=== PATIENT | female | born 1960 | race Caucasian/White ===

== ENCOUNTER 2020-05-07 17:14 | Inpatient (IN) ==
[2020-05-07] MEDS ORDERED: 0.9 % Sodium Chloride 500 ML IVC ONE (17:54)
[2020-05-07 18:28] LABS: INR 1.1; Prothrombin Time 12.2 Seconds (9.4-12.1)
[2020-05-07 18:31] LABS: Activated Partial Thrombo Time 28.8 Seconds (26.0-36.0); Basophils % 0.6 %; Hematocrit 45.5 % (35.3-44.9); Hemoglobin 14.7 g/dL (11.5-15.4); Immature Granulocytes % 0.9 % (0-4); Lymphocytes # 0.6 K/mcL (0.6-4.6); Lymphocytes % 17.6 %; Mean Corpuscular HGB Conc 32.3 g/dL (31.6-35.5); Mean Corpuscular Hemoglobin 27.4 pg (28.0-33.3); Mean Corpuscular Volume 84.9 fL (83.0-100.0); Mean Platelet Volume 10.1 fL (9.4-12.4); Monocytes # 0.1 K/mcL (0.0-1.3); Monocytes % 3.2 %; Platelet Count 211 K/mcL (140-400); Red Blood Count 5.36 M/mcL (3.82-4.97); Red Cell Distribution Width 12.8 % (11.5-14.5); Segmented Neutrophils % 77.7 %; White Blood Count 3.4 K/mcL (4.3-11.1)
[2020-05-07 18:36] LABS: BUN/Creatinine Ratio 16 (6-26); Blood Urea Nitrogen 13 mg/dL (6-20); Calcium 9.5 mg/dL (8.6-10.3); Carbon Dioxide 25 mEq/L (23-29); Chloride 102 mEq/L (98-107); Glucose 149 mg/dL (70-105); Neutrophils # 2.6 K/mcL (1.6-8.9); Osmolality,Calculated 289 (280-300); Potassium 3.6 mEq/L (3.5-5.1); Sodium 138 mEq/L (136-145); Troponin I < 0.03 ng/mL (< 0.04); eGFR For African Americans > 60 (> 60); eGFR For Non-African Americans > 60 (> 60)
[2020-05-07] MEDS ORDERED: Azithromycin 250 MG TABLET PO ONE (18:50)
[2020-05-07] MEDS ORDERED: Dexamethasone 4 MG/ML VIAL IVP ONE (18:51)
[2020-05-07] MEDS ORDERED: 0.9 % Sodium Chloride 1,000 ML IVC ONE (19:12)
[2020-05-07 19:21] LABS: Platelet Estimate Normal (Normal); Reactive Lymphocytes Present (Not Present)
[2020-05-07] MEDS ORDERED: Naloxone 0.4 MG/ML INJ IVP PRN (19:46)
[2020-05-07] MEDS ORDERED: Ondansetron 4 MG/2 ML VIAL IVP PRN (19:46)
[2020-05-07] MEDS ORDERED: *HR* OxyCODONE Immed Rel 5 MG TABLET PO PRN (19:46)
[2020-05-07] MEDS ORDERED: cefTRIAXone 1,000 MG in Water for inj. (sterile) 10 ML IVP SCH (20:00)
[2020-05-07 21:33] LABS: C-Reactive Protein 63 mg/L (Less than 10); Lactate Dehydrogenase 403 Units/L (140-271)
[2020-05-07 21:52] LABS: Ferritin 316 ng/mL (10-120)
[2020-05-07] MEDS ORDERED: Ipratropium/Albuterol Neb 3 ML IH SCH (22:00)
[2020-05-08 00:43] LABS: Lymphocytes % 26.6 %; Red Cell Distribution Width 12.6 % (11.5-14.5)
[2020-05-08 00:45] LABS: Basophils % 0.5 %; Eosinophils % 0.5 %; Hematocrit 43.2 % (35.3-44.9); Hemoglobin 13.3 g/dL (11.5-15.4); Immature Granulocytes % 1.1 % (0-4); Lymphocytes # 0.5 K/mcL (0.6-4.6); Mean Corpuscular HGB Conc 30.8 g/dL (31.6-35.5); Mean Corpuscular Hemoglobin 26.9 pg (28.0-33.3); Mean Corpuscular Volume 87.3 fL (83.0-100.0); Mean Platelet Volume 10.4 fL (9.4-12.4); Monocytes % 1.6 %; Neutrophils # 1.3 K/mcL (1.6-8.9); Platelet Count 176 K/mcL (140-400); Red Blood Count 4.95 M/mcL (3.82-4.97); Segmented Neutrophils % 69.7 %; White Blood Count 1.8 K/mcL (4.3-11.1)
[2020-05-08 01:25] LABS: Platelet Estimate Normal (Normal); Reactive Lymphocytes Present (Not Present)
[2020-05-08] MEDS ORDERED: Benzonatate 100 MG CAPSULE PO PRN (01:56)
[2020-05-08] MEDS: Acetaminophen 325 MG TABLET PO PRN (05:27)
[2020-05-08] MEDS ORDERED: *HR* Heparin 5,000 UNIT/ML VIAL SQ SCH (06:00)
[2020-05-08] MEDS ORDERED: Furosemide 20 MG/2 ML VIAL IVP ONE (07:18)
[2020-05-08] MEDS: Dexamethasone 4 MG/ML VIAL IVP SCH (07:33)
[2020-05-08] MEDS ORDERED: Azithromycin 500 MG in 0.9 % Sodium Chloride 250 ML IVPB SCH (19:00)
[2020-05-08] MEDS: *HR* Enoxaparin 40 MG/0.4 ML SYRINGE SQ SCH (20:18)
[2020-05-09] MEDS: Acetaminophen 325 MG TABLET PO PRN (00:25)
[2020-05-09 01:06] LABS: Hematocrit 42.4 % (35.3-44.9); Hemoglobin 13.5 g/dL (11.5-15.4); Mean Corpuscular HGB Conc 31.8 g/dL (31.6-35.5); Mean Corpuscular Hemoglobin 27.2 pg (28.0-33.3); Mean Corpuscular Volume 85.3 fL (83.0-100.0); Mean Platelet Volume 10.4 fL (9.4-12.4); Platelet Count 211 K/mcL (140-400); Red Blood Count 4.97 M/mcL (3.82-4.97); Red Cell Distribution Width 12.7 % (11.5-14.5)
[2020-05-09 01:07] LABS: White Blood Count 7.8 K/mcL (4.3-11.1)
[2020-05-09 01:27] LABS: BUN/Creatinine Ratio 22 (6-26); Blood Urea Nitrogen 18 mg/dL (6-20); Calcium 8.8 mg/dL (8.6-10.3); Carbon Dioxide 23 mEq/L (23-29); Chloride 106 mEq/L (98-107); Glucose 204 mg/dL (70-105); Osmolality,Calculated 298 (280-300); Potassium 3.6 mEq/L (3.5-5.1); Sodium 140 mEq/L (136-145); eGFR For African Americans > 60 (> 60); eGFR For Non-African Americans > 60 (> 60)
[2020-05-09] MEDS: *HR* Enoxaparin 40 MG/0.4 ML SYRINGE SQ SCH (08:09)
[2020-05-09] MEDS: Dexamethasone 4 MG/ML VIAL IVP SCH (08:09)
[2020-05-09 13:01] VITALS: BP 122/82
== END 2020-05-09 15:38 | disposition home or self-care (01) | DRG 177 ==
LOC: 2NENU 17:14 → EMEROOARM 17:14 → SUATTDRO 19:53 → 2NENU 20:31 → SUATTDRO 05-08 16:33
PROVIDERS: ADMIT Internal Medicine; ATTEND Internal Medicine

== ENCOUNTER 2021-01-21 14:16 | Inpatient (IN) ==
[2021-01-21] MEDS ORDERED: Naloxone 0.4 MG/ML INJ IVP PRN (15:29)
[2021-01-21] MEDS ORDERED: Acetaminophen 325 MG TABLET PO PRN (16:12)
[2021-01-21 17:52] LABS: Basophils # 0.1 K/mcL (0.0-0.2); Basophils % 0.8 %; Eosinophils # 0.2 K/mcL (0.0-0.6); Eosinophils % 2.9 %; Hematocrit 40.9 % (35.3-44.9); Hemoglobin 13.4 g/dL (11.5-15.4); Immature Granulocytes % 0.6 % (0-4); Lymphocytes # 2.2 K/mcL (0.6-4.6); Lymphocytes % 32.7 %; Mean Corpuscular HGB Conc 32.8 g/dL (31.6-35.5); Mean Corpuscular Hemoglobin 27.1 pg (28.0-33.3); Mean Corpuscular Volume 82.8 fL (83.0-100.0); Mean Platelet Volume 10.3 fL (9.4-12.4); Monocytes # 0.4 K/mcL (0.0-1.3); Monocytes % 5.9 %; Neutrophils # 3.8 K/mcL (1.6-8.9); Platelet Count 290 K/mcL (140-400); Red Blood Count 4.94 M/mcL (3.82-4.97); Red Cell Distribution Width 12.8 % (11.5-14.5); Segmented Neutrophils % 57.1 %; White Blood Count 6.6 K/mcL (4.3-11.1)
[2021-01-21 18:07] LABS: BUN/Creatinine Ratio 18 (6-26); Blood Urea Nitrogen 14 mg/dL (6-20); Calcium 9.6 mg/dL (8.6-10.3); Carbon Dioxide 28 mEq/L (23-29); Chloride 103 mEq/L (98-107); Glucose 119 mg/dL (70-105); Osmolality,Calculated 290 (280-300); Potassium 3.6 mEq/L (3.5-5.1); Sodium 139 mEq/L (136-145); eGFR For African Americans > 60 (> 60); eGFR For Non-African Americans > 60 (> 60)
[2021-01-21] MEDS ORDERED: Vancomycin (wt based) 1,000 MG VIAL IVPB SCH (19:00)
[2021-01-21 19:34] LABS: C-Reactive Protein 24 mg/L (Less than 10)
[2021-01-21] MEDS: Vancomycin 1,500 MG/265 ML IV.SOLN IVPB SCH (21:11)
[2021-01-22] MEDS: CeFAZolin 2,000 MG/120 ML BAG IVPB SCH ×3 (00:40→15:46)
[2021-01-22 05:13] LABS: Hematocrit 36.1 % (35.3-44.9); Mean Corpuscular HGB Conc 33.2 g/dL (31.6-35.5); Mean Corpuscular Hemoglobin 27.3 pg (28.0-33.3); Mean Corpuscular Volume 82.2 fL (83.0-100.0); Mean Platelet Volume 9.9 fL (9.4-12.4); Platelet Count 242 K/mcL (140-400); Red Blood Count 4.39 M/mcL (3.82-4.97); Red Cell Distribution Width 12.6 % (11.5-14.5)
[2021-01-22 05:22] LABS: INR 1.1; Prothrombin Time 12.2 Seconds (9.4-12.1)
[2021-01-22 05:32] LABS: BUN/Creatinine Ratio 20 (6-26); Blood Urea Nitrogen 17 mg/dL (6-20); Calcium 8.9 mg/dL (8.6-10.3); Carbon Dioxide 28 mEq/L (23-29); Chloride 105 mEq/L (98-107); Glucose 112 mg/dL (70-105); Osmolality,Calculated 294 (280-300); Potassium 3.6 mEq/L (3.5-5.1); Sodium 141 mEq/L (136-145); eGFR For African Americans > 60 (> 60); eGFR For Non-African Americans > 60 (> 60)
[2021-01-22] MEDS: Vancomycin 1,500 MG/265 ML IV.SOLN IVPB SCH ×2 (07:03→21:09)
[2021-01-22] MEDS ORDERED: Furosemide 40 MG TABLET PO PRN ×2 (10:57→21:54)
[2021-01-22] MEDS ORDERED: hydroCHLOROthiazide 25 MG TABLET PO SCH (11:00)
[2021-01-22] MEDS ORDERED: Psyllium 1 PACKET POWD.PACK PO SCH (11:00)
[2021-01-22] MEDS ORDERED: Zinc Sulfate 220 MG CAPSULE PO SCH (11:15)
[2021-01-22] MEDS: Budesonide/Formoterol 80/4.5 1 PUFF INH IH SCH (15:42)
[2021-01-22] MEDS ORDERED: *HR* Midazolam HCl 2 MG/2 ML VIAL ONE (17:19)
[2021-01-22] MEDS ORDERED: *HR* FentaNYL (PF) 100 MCG/2 ML VIAL ONE (17:19)
[2021-01-22] MEDS ORDERED: *HR* Propofol 200 MG/20 ML VIAL IVP ONE (17:19)
[2021-01-22] MEDS ORDERED: Ondansetron 4 MG/2 ML VIAL ONE (17:21)
[2021-01-22] MEDS ORDERED: Lidocaine -MPF 2% 2 ML VIAL ONE (17:21)
[2021-01-22] MEDS ORDERED: Ondansetron 4 MG/2 ML VIAL IVP PRN ×2 (19:26→21:54)
[2021-01-22] MEDS: *HR* HYDROmorphone PF 0.5 MG/0.5 ML SYRINGE IVP PRN ×4 (19:33→19:51)
[2021-01-22] MEDS: *HR* FentaNYL (PF) 100 MCG/2 ML VIAL IVP PRN ×2 (19:39→19:58)
[2021-01-22] MEDS ORDERED: Ringers Solution, Lactated 1,000 ML ONE (20:03)
[2021-01-22] MEDS ORDERED: *HR* HYDROmorphone PF 0.5 MG/0.5 ML SYRINGE IVP PRN (21:54)
[2021-01-22] MEDS ORDERED: Naloxone 0.4 MG/ML INJ IVP PRN (21:54)
[2021-01-22] MEDS ORDERED: *HR* FentaNYL (PF) 100 MCG/2 ML VIAL IVP PRN (21:54)
[2021-01-22] MEDS ORDERED: Acetaminophen 325 MG TABLET PO PRN (21:54)
[2021-01-23] MEDS: CeFAZolin 2,000 MG/120 ML BAG IVPB SCH ×2 (01:13→07:35)
[2021-01-23 05:37] LABS: Hematocrit 37.1 % (35.3-44.9); Hemoglobin 12.5 g/dL (11.5-15.4); Mean Corpuscular HGB Conc 33.7 g/dL (31.6-35.5); Mean Corpuscular Hemoglobin 27.9 pg (28.0-33.3); Mean Corpuscular Volume 82.8 fL (83.0-100.0); Mean Platelet Volume 10.2 fL (9.4-12.4); Platelet Count 246 K/mcL (140-400); Red Blood Count 4.48 M/mcL (3.82-4.97); Red Cell Distribution Width 12.4 % (11.5-14.5); White Blood Count 6.8 K/mcL (4.3-11.1)
[2021-01-23 06:11] LABS: BUN/Creatinine Ratio 18 (6-26); Blood Urea Nitrogen 14 mg/dL (6-20); Calcium 8.9 mg/dL (8.6-10.3); Carbon Dioxide 25 mEq/L (23-29); Chloride 103 mEq/L (98-107); Glucose 156 mg/dL (70-105); Osmolality,Calculated 292 (280-300); Potassium 4.2 mEq/L (3.5-5.1); Sodium 139 mEq/L (136-145); eGFR For African Americans > 60 (> 60); eGFR For Non-African Americans > 60 (> 60)
[2021-01-23] MEDS: Budesonide/Formoterol 80/4.5 1 PUFF INH IH SCH ×3 (06:58→20:57)
[2021-01-23] MEDS: Psyllium 1 PACKET POWD.PACK PO SCH (07:33)
[2021-01-23] MEDS: Zinc Sulfate 220 MG CAPSULE PO SCH (07:34)
[2021-01-23] MEDS: Aspirin Enteric Coated 81 MG Tablet PO SCH (07:34)
[2021-01-23] MEDS: hydroCHLOROthiazide 25 MG TABLET PO SCH (07:34)
[2021-01-23] MEDS ORDERED: Aspirin Enteric Coated 81 MG Tablet PO SCH (09:00)
[2021-01-23] MEDS: Vancomycin 1,500 MG/265 ML IV.SOLN IVPB SCH ×2 (09:42→21:04)
[2021-01-24] MEDS: *HR* Enoxaparin 40 MG/0.4 ML SYRINGE SQ SCH (05:28)
[2021-01-24 07:02] LABS: Hematocrit 37.9 % (35.3-44.9); Hemoglobin 12.4 g/dL (11.5-15.4); Mean Corpuscular HGB Conc 32.7 g/dL (31.6-35.5); Mean Corpuscular Hemoglobin 27.4 pg (28.0-33.3); Mean Corpuscular Volume 83.7 fL (83.0-100.0); Mean Platelet Volume 9.8 fL (9.4-12.4); Platelet Count 208 K/mcL (140-400); Red Blood Count 4.53 M/mcL (3.82-4.97); Red Cell Distribution Width 12.9 % (11.5-14.5); White Blood Count 5.6 K/mcL (4.3-11.1)
[2021-01-24] MEDS: Budesonide/Formoterol 80/4.5 1 PUFF INH IH SCH ×2 (07:20→21:59)
[2021-01-24 07:22] LABS: BUN/Creatinine Ratio 23 (6-26); Blood Urea Nitrogen 17 mg/dL (6-20); Calcium 8.8 mg/dL (8.6-10.3); Carbon Dioxide 30 mEq/L (23-29); Chloride 103 mEq/L (98-107); Glucose 103 mg/dL (70-105); Magnesium 2.3 mg/dL (1.6-2.6); Osmolality,Calculated 296 (280-300); Potassium 3.5 mEq/L (3.5-5.1); Sodium 142 mEq/L (136-145); eGFR For African Americans > 60 (> 60); eGFR For Non-African Americans > 60 (> 60)
[2021-01-24 07:29] LABS: Troponin I < 0.03 ng/mL (< 0.04)
[2021-01-24] MEDS ORDERED: Ipratropium/Albuterol Neb 3 ML IH PRN (08:48)
[2021-01-24] MEDS: hydroCHLOROthiazide 25 MG TABLET PO SCH (08:59)
[2021-01-24] MEDS: Aspirin Enteric Coated 81 MG Tablet PO SCH (08:59)
[2021-01-24] MEDS: Zinc Sulfate 220 MG CAPSULE PO SCH (08:59)
[2021-01-24] MEDS: Psyllium 1 PACKET POWD.PACK PO SCH (09:00)
[2021-01-24] MEDS ORDERED: Lidocaine -MPF 1% 5 ML AMPUL INFILT ONE (10:40)
[2021-01-24 10:59] LABS: VBG HCO3 29 mEq/L (21-27); VBG PCO2 48 mmHg (41-51); VBG PH 7.39 pH Units (7.32-7.42); VBG PO2 99 mmHg (25-50)
[2021-01-24] MEDS ORDERED: Furosemide 20 MG/2 ML VIAL IVP ONE (11:24)
[2021-01-24] MEDS: Vancomycin 1,500 MG/265 ML IV.SOLN IVPB SCH ×2 (11:26→20:55)
[2021-01-25] MEDS: *HR* Enoxaparin 40 MG/0.4 ML SYRINGE SQ SCH (05:32)
[2021-01-25] MEDS: Aspirin Enteric Coated 81 MG Tablet PO SCH (09:07)
[2021-01-25] MEDS: Zinc Sulfate 220 MG CAPSULE PO SCH (09:07)
[2021-01-25] MEDS: Psyllium 1 PACKET POWD.PACK PO SCH (09:07)
[2021-01-25] MEDS: hydroCHLOROthiazide 25 MG TABLET PO SCH (09:07)
[2021-01-25] MEDS: Vancomycin 1,500 MG/265 ML IV.SOLN IVPB SCH (09:21)
[2021-01-25 10:18] VITALS: BP 130/78; PULSE 77; TEMP 98.2; O2SAT 95
[2021-01-25] MEDS: Budesonide/Formoterol 80/4.5 1 PUFF INH IH SCH (11:20)
== END 2021-01-25 12:45 | disposition home health service (06) | DRG 506 ==
LOC: CDU → SUATTDRO 15:07 → 3NENU 01-23 14:03
PROVIDERS: ADMIT Internal Medicine; ATTEND Internal Medicine